=== PATIENT | female | born 1975 | race Caucasian/White ===

== ENCOUNTER 2017-11-09 12:58 | Emergency (ER) | payer SELFPAY ==
[~2017-11-09 12:58] MED LIST: DEPAKOTE DELAY500 MG; Z.0.ADDERALL 20 MG20; Z.0.FLEXERIL10 MG; Z.0.MOTRIN800 MG; [UNRECOGNIZED DRUG - OTHER]
== END 2017-11-09 13:28 | disposition left against medical advice (07) ==
LOC: ER 12:58
DX: R52 Pain, unspecified (principal)